=== PATIENT | male | born 1965 | race Caucasian/White ===

== ENCOUNTER 2016-10-08 13:50 | Emergency (ER) | payer OTHER ==
[~2016-10-08] VITALS: Ht 180.3 cm; Wt 86.3 kg
[~2016-10-08 13:50] MED LIST: ESCI20TA PO; FERR-89 PO; RISP2 PO
[2016-10-08 16:26] VITALS: BP 132/78
[2016-10-08] MEDS ORDERED: CefTRIAXone SODIUM 1 GM/VIAL IM ONE (17:00)
[2016-10-08] MEDS ORDERED: LIDOCAINE HCL/PF 1% 2 ML VIAL IM ONE (17:00)
[2016-10-08] MEDS ORDERED: HYDROCODONE/ACETAMINOPHEN 5-325 MG TABLET PO ONE (17:00)
== END 2016-10-08 19:01 | disposition home or self-care (01) ==
LOC: EMS 13:51
DX: L03.113 Cellulitis of right upper limb (principal); K21.9 Gastro-esophageal reflux disease without esophagitis; F15.90 Other stimulant use, unspecified, uncomplicated; F17.210 Nicotine dependence, cigarettes, uncomplicated
CPT/HCPCS: 96372; 99284; J0696; J3490

== ENCOUNTER 2017-02-11 04:04 | Emergency (ER) | payer OTHER ==
[~2017-02-11] VITALS: Ht 180.3 cm; Wt 85.0 kg
[2017-02-11] MEDS ORDERED: TRAZ-144 PO (04:25)
[2017-02-11] MEDS ORDERED: CLON1 PO (04:25)
[2017-02-11 04:39] LABS: BASOPHILS % (AUTO) 0.4 % (0.0-2.0); EOSINOPHILS % (AUTO) 1.8 % (1.0-6.0); HEMATOCRIT 37.5 % (41-53); HEMOGLOBIN 12.9 g/dL (13.5-17.5); LYMPHOCYTES # (AUTO) 1.8 K/uL (1.0-4.8); MEAN CORPUSCULAR HEMOGLOBIN 29.3 pg (26.0-34.0); MEAN CORPUSCULAR HGB CONC 34.4 G/dL (31.0-37.0); MEAN CORPUSCULAR VOLUME 85 fL (80-100); MONOCYTES # (AUTO) 0.5 K/uL (0.1-1.0); NEUTROPHILS # (AUTO) 5.8 K/uL (1.8-7.7); NEUTROPHILS % (AUTO) 69.8 % (40.0-70.0); PLATELET COUNT (AUTO) 215 K/uL (150-450); RED CELL DISTRIBUTION WIDTH 14.1 % (11.5-14.5); WHITE BLOOD COUNT (AUTO) 8.3 K/uL (4.5-11.0)
[2017-02-11 04:40] LABS: APPEARANCE,URINE CLOUDY (CLEAR); GLUCOSE, URINE (UA) NEGATIVE (NEGATIVE); KETONES,URINE TRACE mg/dL (NEGATIVE); LEUKOCYTE ESTERASE ,URINE SMALL (NEGATIVE); OCCULT BLOOD,URINE LARGE (NEGATIVE); PROTEIN,URINE POS 1+ (NEGATIVE)
[2017-02-11 04:41] LABS: ADD UA MICROSCOPIC YES
[2017-02-11 04:48] LABS: ANION GAP 11 mmol/L (8-16); CALCIUM, TOTAL 9.9 mg/dL (8.8-10.5); CARBON DIOXIDE 30 mmol/L (22-29); CHLORIDE 103 mmol/L (98-107); CREATININE 0.96 mg/dL (0.60-1.30); GLOMERULAR FILTR. RATE CALC > 60 mL/min (>60); POTASSIUM 3.1 mmol/L (3.5-5.1); PROTHROMBIN TIME 10.6 SEC (9.4-11.6); SODIUM SERUM 144 mmol/L (136-145); UREA NITROGEN, BLOOD 13 mg/dL (7-18)
[2017-02-11 05:09] LABS: CALCIUM OXALATE CRYSTALS,UR Rare /LPF (None Seen); SQUAMOUS EPITHELIAL CELL,UR Few /LPF (None Seen)
[2017-02-11 05:13] LABS: ALANINE AMINOTRANSFERASE 31 U/L (12-78); ALBUMIN 4.1 g/dL (3.4-5.0); ASPARTATE AMINOTRANSFERASE 20 U/L (15-37); BILIRUBIN,TOTAL 0.8 mg/dL (0.1-1.0); CREATINE KINASE MB 1.6 ng/mL (0-5); CREATINE KINASE, TOTAL 171 U/L (39-308); TOTAL PROTEIN, SERUM 7.4 g/dL (6.4-8.2)
[2017-02-11 05:19] LABS: B-TYPE NATRIURETIC PEPTIDE < 5 pg/mL (0-100)
[2017-02-11 05:43] VITALS: BP 135/70
== END 2017-02-11 05:46 | disposition home or self-care (01) ==
LOC: EMS 04:05
DX: R07.89 Other chest pain (principal); E87.6 Hypokalemia; F15.10 Other stimulant abuse, uncomplicated; F17.210 Nicotine dependence, cigarettes, uncomplicated; K21.9 Gastro-esophageal reflux disease without esophagitis; F12.90 Cannabis use, unspecified, uncomplicated
CPT/HCPCS: 36415; 71010; 80053; 80307; 81001; 82550; 82553; 83880; 84484; 85025; 85610; 85730; 93005; 99285; 99406; G0480

== ENCOUNTER 2018-12-03 19:15 | Emergency (ER) | payer OTHER ==
[~2018-12-03] VITALS: Ht 180.3 cm; Wt 84.1 kg
[~2018-12-03 19:15] MED LIST changes: +CLON1 PO; -ESCI20TA PO; -FERR-89 PO; -RISP2 PO; +TRAZ-252 PO
[2018-12-03] MEDS ORDERED: QUET300T2 PO (20:05)
[2018-12-03] MEDS ORDERED: QUET25TA PO (20:05)
[2018-12-03 20:47] LABS: BASOPHILS % (AUTO) 0.3 % (0.0-2.0); EOSINOPHILS % (AUTO) 1.3 % (1.0-6.0); HEMOGLOBIN 12.3 g/dL (13.5-17.5); LYMPHOCYTES % (AUTO) 22.8 % (22.0-44.0); MEAN CORPUSCULAR HEMOGLOBIN 28.3 pg (26.0-34.0); MEAN CORPUSCULAR HGB CONC 33.1 G/dL (31.0-37.0); MEAN CORPUSCULAR VOLUME 85 fL (80-100); MONOCYTES # (AUTO) 0.5 K/uL (0.1-1.0); MONOCYTES % (AUTO) 5.7 % (2.0-9.0); NEUTROPHILS # (AUTO) 6.1 K/uL (1.8-7.7); NEUTROPHILS % (AUTO) 69.9 % (40.0-70.0); PLATELET COUNT (AUTO) 212 K/uL (150-450); RED BLOOD CELL COUNT(AUTO) 4.34 MIL/uL (4.50-5.90); RED CELL DISTRIBUTION WIDTH 14.6 % (11.5-14.5)
[2018-12-03 20:57] LABS: ANION GAP 7 mmol/L (8-16); CALCIUM, TOTAL 9.9 mg/dL (8.8-10.5); CARBON DIOXIDE 32 mmol/L (22-29); CHLORIDE 108 mmol/L (98-107); CREATININE 0.79 mg/dL (0.60-1.30); GLOMERULAR FILTR. RATE CALC > 60 mL/min (>60); GLUCOSE,RANDOM 94 mg/dL (70-110); POTASSIUM 3.6 mmol/L (3.5-5.1); SODIUM SERUM 147 mmol/L (136-145); UREA NITROGEN, BLOOD 18 mg/dL (7-18)
[2018-12-03 21:09] LABS: ALANINE AMINOTRANSFERASE 31 U/L (12-78); ALBUMIN 3.9 g/dL (3.4-5.0); ALKALINE PHOSPHATASE 96 U/L (46-116); ASPARTATE AMINOTRANSFERASE 29 U/L (15-37); BILIRUBIN,TOTAL 0.7 mg/dL (0.1-1.0); TOTAL PROTEIN, SERUM 7.1 g/dL (6.4-8.2)
[2018-12-03 21:46] LABS: AMPHET/METH SCREEN,URINE POSITIVE (NEGATIVE); BARBITURATE SCREEN, URINE NEGATIVE (NEGATIVE); BENZODIAZEPINES SCREEN,URINE NEGATIVE (NEGATIVE); CANNABINOID SCREEN,URINE POSITIVE (NEGATIVE); COCAINE SCREEN,URINE NEGATIVE (NEGATIVE); METHADONE SCREEN, URINE NEGATIVE (NEGATIVE); OPIATE SCREEN,URINE NEGATIVE (NEGATIVE)
[2018-12-03 21:48] LABS: PHENCYCLIDINE SCREEN,URINE NEGATIVE (NEGATIVE)
[2018-12-04 05:37] VITALS: BP 141/97
== END 2018-12-04 05:44 | disposition home or self-care (01) ==
LOC: EMS 19:17
DX: F43.9 Reaction to severe stress, unspecified (principal); F32.9 Major depressive disorder, single episode, unspecified; F15.10 Other stimulant abuse, uncomplicated; F41.9 Anxiety disorder, unspecified; K21.9 Gastro-esophageal reflux disease without esophagitis; F17.210 Nicotine dependence, cigarettes, uncomplicated; F12.90 Cannabis use, unspecified, uncomplicated; F19.90 Other psychoactive substance use, unspecified, uncomplicated; Z79.899 Other long term (current) drug therapy
CPT/HCPCS: 36415; 80053; 80307; 85025; 99284; G0480

== ENCOUNTER 2018-12-04 06:50 | Emergency (ER) | payer OTHER ==
[~2018-12-04 06:50] MED LIST changes: +QUET25TA PO; +QUET300T2 PO
== END 2018-12-04 09:08 | disposition left against medical advice (07) ==
LOC: EMS 06:50
DX: Z00.00 Encounter for general adult medical examination without abnormal findings (principal); Z53.21 Procedure and treatment not carried out due to patient leaving prior to being seen by health care provider

== ENCOUNTER 2022-11-18 10:57 | Inpatient (IN) | payer MEDICAID ==
[~2022-11-18] VITALS: Ht 177.8 cm; Wt 83.9 kg
[~2022-11-18 10:57] MED LIST changes: +CLON-595 PO; -CLON1 PO; -TRAZ-252 PO
[2022-11-18] MEDS ORDERED: HALOPERIDOL 5 MG TABLET PO PRN (11:15)
[2022-11-18 16:40] VITALS: BP 114/83
[2022-11-18 20:22] VITALS: BP 120/80
[2022-11-19] MEDS ORDERED: GuaiFENesin/D-METHORPHAN [SUGAR-FREE] 200-20MG/10 ML SYRUP UDCUP PO PRN (07:00)
[2022-11-19] MEDS ORDERED: ALBUTEROL SULFATE HFA 90 MCG/PUFF 8 GM INHALER IH PRN (07:00)
[2022-11-19] MEDS ORDERED: CloNIDine HCL 0.1 MG TABLET PO PRN (07:00)
[2022-11-19] MEDS ORDERED: MAG HYDROX/AL HYDROX/SIMETH ES 30 ML SUSPENSION UDCUP PO PRN (07:00)
[2022-11-19] MEDS ORDERED: LOPERAMIDE HCL 2 MG CAPSULE PO PRN (07:00)
[2022-11-19] MEDS ORDERED: PETROLATUM,WHITE 28 GM JELLY TP PRN (07:00)
[2022-11-19] MEDS ORDERED: DOCUSATE SODIUM 100 MG CAPSULE PO PRN (07:00)
[2022-11-19] MEDS ORDERED: NICOTINE 14 MG/24 HOUR PATCH TD PRN (07:00)
[2022-11-19] MEDS ORDERED: ACETAMINOPHEN 325 MG TABLET PO PRN (07:00)
[2022-11-19] MEDS ORDERED: ONDANSETRON HCL 4 MG TABLET PO PRN (07:00)
[2022-11-19] MEDS ORDERED: IBUPROFEN 400 MG TABLET PO PRN (07:00)
[2022-11-19] MEDS ORDERED: MAGNESIUM HYDROXIDE SUSPENSION 30 ML UDCUP PO PRN (07:00)
[2022-11-19 07:35] LABS: BASOPHILS % (AUTO) 0.9 % (0.0-2.0); HEMATOCRIT 34.5 % (41-53); HEMOGLOBIN 11.4 g/dL (13.5-17.5); LYMPHOCYTES # (AUTO) 1.6 K/uL (1.0-4.8); LYMPHOCYTES % (AUTO) 33.1 % (22.0-44.0); MEAN CORPUSCULAR HEMOGLOBIN 26.7 pg (26.0-34.0); MEAN CORPUSCULAR HGB CONC 32.9 G/dL (31.0-37.0); MEAN CORPUSCULAR VOLUME 81 fL (80-100); MONOCYTES # (AUTO) 0.4 K/uL (0.1-1.0); MONOCYTES % (AUTO) 7.4 % (2.0-9.0); NEUTROPHILS # (AUTO) 2.6 K/uL (1.8-7.7); NEUTROPHILS % (AUTO) 54.6 % (40.0-70.0); PLATELET COUNT (AUTO) 168 K/uL (150-450); RED BLOOD CELL COUNT(AUTO) 4.26 MIL/uL (4.50-5.90); RED CELL DISTRIBUTION WIDTH 13.3 % (11.5-14.5)
[2022-11-19 07:58] LABS: HEMOGLOBIN A1C 4.9 % (3.8-5.6)
[2022-11-19 08:04] LABS: ALANINE AMINOTRANSFERASE 25 U/L (12-78); ALBUMIN 3.2 g/dL (3.4-5.0); ALKALINE PHOSPHATASE 83 U/L (46-116); ANION GAP 6 mmol/L (8-16); ASPARTATE AMINOTRANSFERASE 16 U/L (15-37); BILIRUBIN,TOTAL 0.3 mg/dL (0.1-1.0); CALCIUM, TOTAL 9.5 mg/dL (8.8-10.5); CARBON DIOXIDE 26 mmol/L (22-29); CHLORIDE 108 mmol/L (98-107); CHOL/HDL RATIO 4.2 (4.2-7.3); CHOLESTEROL 147 mg/dL (131-200); CREATININE 0.62 mg/dL (0.60-1.30); FREE T4 (FREE THYROXINE) 1.12 ng/dL (0.76-1.46); GLOMERULAR FILTR. RATE CALC > 60 mL/min (>60); GLUCOSE,RANDOM 99 mg/dL (70-110); HDL CHOLESTEROL 35 mg/dL (40-60); LDL CHOL (CALC.) 97 mg/dL (0-130); SODIUM SERUM 140 mmol/L (136-145); THYROID STIMULATING HORMONE 0.02 uIU/mL (0.36-3.74); TOTAL PROTEIN, SERUM 5.9 g/dL (6.4-8.2); TRIGLYCERIDES 77 mg/dL (15-150); UREA NITROGEN, BLOOD 7 mg/dL (7-18)
[2022-11-19] MEDS: PANTOPRAZOLE SODIUM 40 MG DR TABLET PO SCH (08:50)
[2022-11-19] MEDS: ATORVASTATIN CALCIUM 10 MG TABLET PO SCH (08:50)
[2022-11-19] MEDS: TAMSULOSIN HCL 0.4 MG CAPSULE PO SCH (08:51)
[2022-11-19 10:39] VITALS: BP 126/78
[2022-11-19] MEDS: QUEtiapine FUMARATE 25 MG TABLET PO SCH (10:56)
[2022-11-19 20:23] VITALS: BP 108/63
[2022-11-19] MEDS: QUEtiapine FUMARATE 300 MG TABLET PO SCH (20:42)
[2022-11-19] MEDS: BENZTROPINE MESYLATE 1 MG TABLET PO SCH (20:42)
[2022-11-20] MEDS: QUEtiapine FUMARATE 25 MG TABLET PO SCH (09:00)
[2022-11-20] MEDS: BENZTROPINE MESYLATE 1 MG TABLET PO SCH ×2 (09:01→20:06)
[2022-11-20] MEDS: ATORVASTATIN CALCIUM 10 MG TABLET PO SCH (09:01)
[2022-11-20] MEDS: PANTOPRAZOLE SODIUM 40 MG DR TABLET PO SCH (09:01)
[2022-11-20] MEDS: TAMSULOSIN HCL 0.4 MG CAPSULE PO SCH (09:01)
[2022-11-20 09:42] VITALS: BP 100/71
[2022-11-20] MEDS: LORazepam 2 MG TABLET PO PRN (15:08)
[2022-11-20] MEDS: QUEtiapine FUMARATE 300 MG TABLET PO SCH (20:06)
[2022-11-20 20:22] VITALS: BP 103/77
[2022-11-21 08:03] LABS: APPEARANCE,URINE CLEAR (CLEAR); BILIRUBIN,URINE NEGATIVE (NEGATIVE); GLUCOSE, URINE (UA) NEGATIVE (NEGATIVE); KETONES,URINE NEGATIVE (NEGATIVE); LEUKOCYTE ESTERASE ,URINE NEGATIVE (NEGATIVE); NITRATE,URINE NEGATIVE (NEGATIVE); OCCULT BLOOD,URINE NEGATIVE (NEGATIVE); PH,URINE 6.5 (5.0-8.0); PROTEIN,URINE NEGATIVE (NEGATIVE); UROBILINOGEN,URINE <=1.0 mg/dL (<=1.0)
[2022-11-21 08:10] LABS: AMPHET/METH SCREEN,URINE NEGATIVE (NEGATIVE); BARBITURATE SCREEN, URINE NEGATIVE (NEGATIVE); BENZODIAZEPINES SCREEN,URINE NEGATIVE (NEGATIVE); CANNABINOID SCREEN,URINE NEGATIVE (NEGATIVE); COCAINE SCREEN,URINE NEGATIVE (NEGATIVE); METHADONE SCREEN, URINE NEGATIVE (NEGATIVE); OPIATE SCREEN,URINE NEGATIVE (NEGATIVE); PHENCYCLIDINE SCREEN,URINE NEGATIVE (NEGATIVE)
[2022-11-21] MEDS: BENZTROPINE MESYLATE 1 MG TABLET PO SCH ×2 (08:22→20:08)
[2022-11-21] MEDS: TAMSULOSIN HCL 0.4 MG CAPSULE PO SCH (08:22)
[2022-11-21] MEDS: QUEtiapine FUMARATE 25 MG TABLET PO SCH (08:23)
[2022-11-21] MEDS: ATORVASTATIN CALCIUM 10 MG TABLET PO SCH (08:23)
[2022-11-21] MEDS: PANTOPRAZOLE SODIUM 40 MG DR TABLET PO SCH (08:23)
[2022-11-21 08:30] VITALS: BP 102/64
[2022-11-21] MEDS: LORazepam 2 MG TABLET PO PRN (16:08)
[2022-11-21] MEDS: QUEtiapine FUMARATE 300 MG TABLET PO SCH (20:08)
[2022-11-21 20:22] VITALS: BP 110/63
[2022-11-22 08:56] VITALS: BP 100/62
[2022-11-22] MEDS: ATORVASTATIN CALCIUM 10 MG TABLET PO SCH (09:15)
[2022-11-22] MEDS: TAMSULOSIN HCL 0.4 MG CAPSULE PO SCH (09:15)
[2022-11-22] MEDS: QUEtiapine FUMARATE 25 MG TABLET PO SCH (09:15)
[2022-11-22] MEDS: BENZTROPINE MESYLATE 1 MG TABLET PO SCH ×2 (09:15→20:03)
[2022-11-22] MEDS: PANTOPRAZOLE SODIUM 40 MG DR TABLET PO SCH (09:16)
[2022-11-22] MEDS: LORazepam 2 MG TABLET PO PRN (16:30)
[2022-11-22] MEDS: QUEtiapine FUMARATE 300 MG TABLET PO SCH (20:03)
[2022-11-22 20:31] VITALS: BP 112/80
[2022-11-23 08:34] VITALS: BP 117/78
[2022-11-23] MEDS: ATORVASTATIN CALCIUM 10 MG TABLET PO SCH (08:50)
[2022-11-23] MEDS: TAMSULOSIN HCL 0.4 MG CAPSULE PO SCH (08:50)
[2022-11-23] MEDS: PANTOPRAZOLE SODIUM 40 MG DR TABLET PO SCH (08:50)
[2022-11-23] MEDS: QUEtiapine FUMARATE 25 MG TABLET PO SCH (08:50)
[2022-11-23] MEDS: BENZTROPINE MESYLATE 1 MG TABLET PO SCH ×2 (08:51→20:14)
[2022-11-23] MEDS: LORazepam 2 MG TABLET PO PRN (16:12)
[2022-11-23] MEDS: QUEtiapine FUMARATE 300 MG TABLET PO SCH (20:14)
[2022-11-23 20:17] VITALS: BP 103/72
[2022-11-24] MEDS: TAMSULOSIN HCL 0.4 MG CAPSULE PO SCH (09:13)
[2022-11-24] MEDS: QUEtiapine FUMARATE 25 MG TABLET PO SCH (09:13)
[2022-11-24] MEDS: ATORVASTATIN CALCIUM 10 MG TABLET PO SCH (09:13)
[2022-11-24] MEDS: PANTOPRAZOLE SODIUM 40 MG DR TABLET PO SCH (09:13)
[2022-11-24] MEDS: BENZTROPINE MESYLATE 1 MG TABLET PO SCH ×2 (09:13→20:44)
[2022-11-24 09:19] VITALS: BP 114/81
[2022-11-24 20:37] VITALS: BP 105/69
[2022-11-24] MEDS: QUEtiapine FUMARATE 300 MG TABLET PO SCH (20:44)
[2022-11-24 21:31] LABS: GLUCOMETER DEV NAME(LOC) POC.BV
[2022-11-25 08:32] VITALS: BP 123/84
[2022-11-25] MEDS: ATORVASTATIN CALCIUM 10 MG TABLET PO SCH (08:51)
[2022-11-25] MEDS: PANTOPRAZOLE SODIUM 40 MG DR TABLET PO SCH (08:51)
[2022-11-25] MEDS: TAMSULOSIN HCL 0.4 MG CAPSULE PO SCH (08:51)
[2022-11-25] MEDS: BENZTROPINE MESYLATE 1 MG TABLET PO SCH ×2 (08:51→20:16)
[2022-11-25] MEDS: QUEtiapine FUMARATE 25 MG TABLET PO SCH (08:51)
[2022-11-25 20:12] VITALS: BP 118/66
[2022-11-25] MEDS: QUEtiapine FUMARATE 300 MG TABLET PO SCH (20:16)
[2022-11-26 08:49] VITALS: BP 128/83
[2022-11-26] MEDS: TAMSULOSIN HCL 0.4 MG CAPSULE PO SCH (09:02)
[2022-11-26] MEDS: QUEtiapine FUMARATE 25 MG TABLET PO SCH (09:02)
[2022-11-26] MEDS: BENZTROPINE MESYLATE 1 MG TABLET PO SCH ×2 (09:02→20:47)
[2022-11-26] MEDS: PANTOPRAZOLE SODIUM 40 MG DR TABLET PO SCH (09:02)
[2022-11-26] MEDS: ATORVASTATIN CALCIUM 10 MG TABLET PO SCH (09:02)
[2022-11-26] MEDS: LORazepam 2 MG TABLET PO PRN ×2 (10:49→15:03)
[2022-11-26 20:30] VITALS: BP 124/76
[2022-11-26] MEDS: QUEtiapine FUMARATE 300 MG TABLET PO SCH (20:47)
[2022-11-27 08:52] VITALS: BP 106/79
[2022-11-27] MEDS: TAMSULOSIN HCL 0.4 MG CAPSULE PO SCH (09:08)
[2022-11-27] MEDS: BENZTROPINE MESYLATE 1 MG TABLET PO SCH ×2 (09:08→20:41)
[2022-11-27] MEDS: QUEtiapine FUMARATE 25 MG TABLET PO SCH (09:08)
[2022-11-27] MEDS: PANTOPRAZOLE SODIUM 40 MG DR TABLET PO SCH (09:08)
[2022-11-27] MEDS: ATORVASTATIN CALCIUM 10 MG TABLET PO SCH (09:08)
[2022-11-27] MEDS: LORazepam 2 MG TABLET PO PRN ×2 (13:45→20:41)
[2022-11-27] MEDS: QUEtiapine FUMARATE 300 MG TABLET PO SCH (20:41)
[2022-11-27] MEDS: ZOLPIDEM TARTRATE 10 MG TABLET PO PRN (20:41)
[2022-11-27 20:46] VITALS: BP 109/80
[2022-11-28 08:00] VITALS: BP 133/88
[2022-11-28] MEDS: ATORVASTATIN CALCIUM 10 MG TABLET PO SCH (08:44)
[2022-11-28] MEDS: QUEtiapine FUMARATE 25 MG TABLET PO SCH (08:44)
[2022-11-28] MEDS: BENZTROPINE MESYLATE 1 MG TABLET PO SCH ×2 (08:45→20:01)
[2022-11-28] MEDS: PANTOPRAZOLE SODIUM 40 MG DR TABLET PO SCH (08:45)
[2022-11-28] MEDS: TAMSULOSIN HCL 0.4 MG CAPSULE PO SCH (08:45)
[2022-11-28] MEDS: LORazepam 2 MG TABLET PO PRN ×2 (15:41→22:54)
[2022-11-28] MEDS: ZOLPIDEM TARTRATE 10 MG TABLET PO PRN (20:01)
[2022-11-28] MEDS: QUEtiapine FUMARATE 300 MG TABLET PO SCH (20:01)
[2022-11-28 20:57] VITALS: BP 111/73
[2022-11-29] MEDS ORDERED: QUET300T19 PO (06:11)
[2022-11-29] MEDS ORDERED: BENZ1TAB96 PO (06:11)
[2022-11-29] MEDS ORDERED: TAMS-13 PO (06:11)
[2022-11-29] MEDS ORDERED: QUET25TA36 PO (06:11)
[2022-11-29] MEDS ORDERED: ATOR10TA69 PO (06:11)
[2022-11-29] MEDS: ATORVASTATIN CALCIUM 10 MG TABLET PO SCH (08:40)
[2022-11-29] MEDS: BENZTROPINE MESYLATE 1 MG TABLET PO SCH (08:40)
[2022-11-29] MEDS: TAMSULOSIN HCL 0.4 MG CAPSULE PO SCH (08:40)
[2022-11-29] MEDS: QUEtiapine FUMARATE 25 MG TABLET PO SCH (08:40)
[2022-11-29] MEDS: PANTOPRAZOLE SODIUM 40 MG DR TABLET PO SCH (08:40)
[2022-11-29 10:08] VITALS: BP 121/85
== END 2022-11-29 15:18 | disposition home or self-care (01) | DRG 750 ==
LOC: B3A 15:12
PROVIDERS: ADMIT Psychiatry & Neurology Psychiatry; ATTEND Psychiatry & Neurology Psychiatry
DX: F25.0 Schizoaffective disorder, bipolar type (principal); R45.851 Suicidal ideations; G47.00 Insomnia, unspecified; I10 Essential (primary) hypertension; I25.10 Atherosclerotic heart disease of native coronary artery without angina pectoris; Z20.822 Contact with and (suspected) exposure to COVID-19; K21.9 Gastro-esophageal reflux disease without esophagitis; N40.0 Benign prostatic hyperplasia without lower urinary tract symptoms; T39.1X2A Poisoning by 4-Aminophenol derivatives, intentional self-harm, initial encounter; Y92.89 Other specified places as the place of occurrence of the external cause; Z79.899 Other long term (current) drug therapy
CPT/HCPCS: 80053; 80061; 80307; 81003; 83036; 84436; 84439; 84443; 85025; 86592; G0480